=== PATIENT | male | born 1950 | race Caucasian/White ===

== ENCOUNTER → 2018-07-16 09:00 | Outpatient (CLI) | payer OTHER, MEDICARE, SELFPAY ==
--- NOTE | 2018-07-16 09:08 | US_ITS ---
PROCEDURES: ULTRASOUND AORTA REASON FOR EXAM: Male, 67 years old. Screening for abdominal aortic aneurysm. History of hypertension. TECHNIQUE: Ultrasound evaluation of the aorta was performed with real-time and static francis-scale imaging. COMPARISON: None. FINDINGS: There is no elongation or tortuosity of the abdominal aorta. Aorta measures: Proximal 2.1 cm. Middle 1.6 cm. Distal 1.8 cm. Aorta measure transversely: Proximal 2.3 cm. Middle 1.7 cm. Distal 1.8 cm. Right iliac artery measures: 1.2 cm. Right iliac artery measure transversely: 1.1 cm. Left iliac artery measures: 1.1 cm. Left iliac artery measure transversely: 1.0 cm. There is no demonstrated aneurysm.. US/Aorta IMPRESSION: Normal abdominal aorta. Electronically Signed: Nathanael Vences MD at 10:30 EDT Tel [phone], Service support ,
[2018-07-16 11:20] LABS: Anion Gap 5 (5-15); BUN 15 mg/dL (7-18); BUN/Creat Ratio 18.5 RATIO (10-20); Calcium,Total 8.5 mg/dL (8.5-10.1); Chloride 107 mmol/L (98-107); Cholesterol 161 mg/dL (200); Creatinine, Serum 0.81 mg/dL (0.70-1.30); EST Glomerular Filtration Rate 101 mL/min (>60); Est Glom Filt Rate - Afr Amer 122 mL/min (>60); Glucose 93 mg/dL (74-106); High Density Lipoprotein 63 mg/dL; Potassium 4.1 mmol/L (3.5-5.1); Sodium Level 141 mmol/L (136-145); Thyroid Stim Hormone (TSH) 1.08 uIU/mL (0.358-3.74); Triglycerides 74 mg/dL; Very Low Density Lipoprotein 15 mg/dL (5-40)
== END ==
PROVIDERS: Family Provider Family Medicine; PCP Family Medicine; Referring Provider Family Medicine; Visit Provider Family Medicine
DX: Z13.6 Encounter for screening for cardiovascular disorders (principal); I10 Essential (primary) hypertension; E03.9 Hypothyroidism, unspecified
CPT/HCPCS: 36415; 76775; 80048; 80061; 84443

== ENCOUNTER → 2019-08-25 08:43 | Outpatient (CLI) | payer MEDICARE, OTHER, SELFPAY ==
[2017-06-05 14:30] VITALS: BMI 24.2
[2019-08-25 10:50] LABS: ALB/GLOB Ratio 1.1 RATIO (0.9-2.4); AST(SGOT) 23 U/L (15-37); Alanine Aminotransfer ALT/SGPT 29 U/L (16-61); Albumin, Serum 3.8 g/dL (3.2-5.0); Alkaline Phosphatase 57 U/L (45-117); Anion Gap 8 (5-15); BUN 24 mg/dL (7-18); BUN/Creat Ratio 27.8 RATIO (10-20); Calcium,Total 8.4 mg/dL (8.5-10.1); Chloride 106 mmol/L (98-107); Cholesterol 149 mg/dL (200); Creatinine, Serum 0.86 mg/dL (0.70-1.30); EST Glomerular Filtration Rate 94 mL/min (>60); Est Glom Filt Rate - Afr Amer 114 mL/min (>60); Globulin 3.5 g/dL (2.2-4.2); Glucose 96 mg/dL (74-106); High Density Lipoprotein 69 mg/dL; Potassium 3.5 mmol/L (3.5-5.1); Protein, Total 7.3 g/dL (6.4-8.2); Sodium Level 142 mmol/L (136-145); Thyroid Stim Hormone (TSH) 0.11 uIU/mL (0.358-3.74); Triglycerides 28 mg/dL; Very Low Density Lipoprotein 6 mg/dL (5-40)
== END ==
PROVIDERS: Family Provider Family Medicine; PCP Family Medicine; Referring Provider Family Medicine; Visit Provider Family Medicine
DX: I10 Essential (primary) hypertension (principal); N40.0 Benign prostatic hyperplasia without lower urinary tract symptoms; E03.9 Hypothyroidism, unspecified
CPT/HCPCS: 36415; 80053; 80061; 84153; 84439; 84443; G0103

== ENCOUNTER → 2020-07-06 | Outpatient (CLI) | payer MEDICARE, OTHER, SELFPAY ==
[2017-06-05 14:30] VITALS: BMI 24.2
== END | disposition home or self-care (01) ==
LOC: LABSPEC 12:21
PROVIDERS: Referring Provider Family Medicine; Visit Provider Family Medicine
DX: Z03.818 Encounter for observation for suspected exposure to other biological agents ruled out (principal); Z11.59 Encounter for screening for other viral diseases
CPT/HCPCS: 87635; U0003

== ENCOUNTER → 2020-07-20 | Outpatient (CLI) | payer MEDICARE, OTHER, SELFPAY ==
[2017-06-05 14:30] VITALS: BMI 24.2
== END | disposition home or self-care (01) ==
LOC: LABSPEC 10:50
PROVIDERS: Visit Provider Family Medicine
DX: Z03.818 Encounter for observation for suspected exposure to other biological agents ruled out (principal); Z11.59 Encounter for screening for other viral diseases
CPT/HCPCS: 87635; U0003

== ENCOUNTER → 2020-08-03 | Outpatient (CLI) | payer MEDICARE, OTHER, SELFPAY ==
[2017-06-05 14:30] VITALS: BMI 24.2
== END | disposition home or self-care (01) ==
LOC: LABSPEC 08:46
PROVIDERS: Referring Provider Family Medicine; Visit Provider Family Medicine
DX: Z03.818 Encounter for observation for suspected exposure to other biological agents ruled out (principal); Z11.59 Encounter for screening for other viral diseases
CPT/HCPCS: 87635; U0003

== ENCOUNTER → 2020-08-17 | Outpatient (CLI) | payer MEDICARE, OTHER, SELFPAY ==
[2017-06-05 14:30] VITALS: BMI 24.2
== END | disposition home or self-care (01) ==
LOC: LABSPEC 10:02
PROVIDERS: Referring Provider Family Medicine; Visit Provider Family Medicine
DX: Z03.818 Encounter for observation for suspected exposure to other biological agents ruled out (principal)
CPT/HCPCS: 87635; U0003

== ENCOUNTER → 2020-08-31 | Outpatient (CLI) | payer MEDICARE, OTHER, SELFPAY | END | disposition home or self-care (01) | LOC: LABSPEC 12:23 | PROVIDERS: Referring Provider Family Medicine; Visit Provider Family Medicine | DX: Z03.818 Encounter for observation for suspected exposure to other biological agents ruled out (principal); Z11.59 Encounter for screening for other viral diseases | CPT/HCPCS: 87635; U0003 ==

== ENCOUNTER → 2021-02-14 13:58 | Outpatient (CLI) | payer MEDICARE, OTHER, SELFPAY ==
[2017-06-05 14:30] VITALS: BMI 24.2
[2021-02-14 15:44] LABS: Anion Gap 7 (5-15); BUN 21 mg/dL (7-18); BUN/Creat Ratio 28.3 RATIO (10-20); Calcium,Total 8.8 mg/dL (8.5-10.1); Chloride 105 mmol/L (98-107); Cholesterol 153 mg/dL (200); Creatinine, Serum 0.74 mg/dL (0.70-1.30); EST Glomerular Filtration Rate 111 mL/min (>60); Est Glom Filt Rate - Afr Amer 135 mL/min (>60); Glucose 78 mg/dL (74-106); High Density Lipoprotein 69 mg/dL; PSA,Total - Annual Screen 1.36 ng/mL (0.00-4.00); Potassium 3.3 mmol/L (3.5-5.1); Sodium Level 139 mmol/L (136-145); Thyroid Stim Hormone (TSH) 0.02 uIU/mL (0.358-3.74); Triglycerides 29 mg/dL; Very Low Density Lipoprotein 6 mg/dL (5-40)
== END ==
PROVIDERS: PCP Family Medicine; Referring Provider Family Medicine; Visit Provider Family Medicine
DX: I10 Essential (primary) hypertension (principal); E03.9 Hypothyroidism, unspecified; N40.0 Benign prostatic hyperplasia without lower urinary tract symptoms
CPT/HCPCS: 36415; 80048; 80061; 84153; 84443; G0103

== ENCOUNTER → 2021-03-27 08:04 | Outpatient (CLI) | payer MEDICARE, OTHER, SELFPAY ==
[2021-03-27 10:34] LABS: Anion Gap 4 (5-15); BUN 17 mg/dL (7-18); BUN/Creat Ratio 22.3 RATIO (10-20); Calcium,Total 8.6 mg/dL (8.5-10.1); Chloride 108 mmol/L (98-107); Creatinine, Serum 0.76 mg/dL (0.70-1.30); EST Glomerular Filtration Rate 108 mL/min (>60); Est Glom Filt Rate - Afr Amer 131 mL/min (>60); Glucose 97 mg/dL (74-106); Potassium 4.2 mmol/L (3.5-5.1); Sodium Level 140 mmol/L (136-145)
== END ==
PROVIDERS: PCP Family Medicine; Visit Provider Family Medicine
DX: I10 Essential (primary) hypertension (principal)
CPT/HCPCS: 36415; 80048

== ENCOUNTER → 2021-09-06 08:16 | Outpatient (CLI) | payer MEDICARE, OTHER, SELFPAY ==
[2021-09-06 10:46] LABS: T4 Free Direct 1.26 ng/dL (0.76-1.46); Thyroid Stim Hormone (TSH) 0.08 uIU/mL (0.358-3.74)
[2021-09-11 07:42] LABS: Anti-Thyroglobulin AB < 1.0 IU/mL (0.0-0.9); Thyroglobulin, Serum Qt. < 0.1 ng/mL (1.4-29.2)
== END ==
PROVIDERS: PCP Family Medicine; Referring Provider Family Medicine
DX: C73 Malignant neoplasm of thyroid gland (principal)
CPT/HCPCS: 36415; 84432; 84439; 84443; 86800

== ENCOUNTER → 2022-02-26 | Outpatient (CLI) | payer MEDICARE, OTHER, SELFPAY ==
--- NOTE | 2022-02-26 | LES_PTH ---
PATIENT: DARRIUS PITTS LOC: [facility] U#:[id number] AGE/SX: 71/M ROOM: RE02/26/[address]: Dr. Xavier Duvall MD : 1950 BED: DIS: 02/26/2022 SPEC #: [id number] RECD: 02/26/22 17:14 STATUS: MARILOU REJorje #: [id number] JADA: 02/26/22 00:[address]: Xavier Duvall DEPT: SURGICAL PATHOLOGY RECD BY: Dara Lynn ENTERED: 02/27/22 09:24 SP TYPE: Lesion OTHR DR: Dr. Fabian Salgado MD Tissues: Skin of eyelid, NOS Procedures: Surgery Specimen Level IV HEADER OPERATION: Right upper lid lesion excision PRE-OP DIAGNOSIS: Right upper lid lesion TISSUE SUBMITTED: Right upper lid lesion MICROSCOPIC DIAGNOSIS Lesion of right upper eyelid, biopsy: Consistent with eccrine cyst. AM:manny 02/28/2022 MICROSCOPIC DESCRIPTION Slides are reviewed. GROSS DESCRIPTION Received in fixative is one container labeled with the patient's name and designated right upper lid. The specimen consists of a minute piece of genao-light brown skin measuring 0.1 cm in greatest dimension. The entire specimen is submitted in one cassette. / SJ:manny 02/27/2022 TC:5 CPT: 09239
== END | disposition home or self-care (01) ==
PROVIDERS: PCP Family Medicine; Referring Provider Ophthalmology; Visit Provider Ophthalmology
DX: H02.9 Unspecified disorder of eyelid (principal)
CPT/HCPCS: 88305

== ENCOUNTER → 2022-04-11 | Outpatient (CLI) | payer MEDICARE, OTHER, SELFPAY ==
[2022-04-11 10:54] LABS: Anion Gap 6 (5-15); BUN 23 mg/dL (7-18); BUN/Creat Ratio 35.5 RATIO (10-20); Calcium,Total 8.9 mg/dL (8.5-10.1); Chloride 107 mmol/L (98-107); Cholesterol 134 mg/dL (200); Creatinine, Serum 0.65 mg/dL (0.70-1.30); EST Glomerular Filtration Rate 130 mL/min (>60); Est Glom Filt Rate - Afr Amer 157 mL/min (>60); Glucose 100 mg/dL (74-106); High Density Lipoprotein 58 mg/dL; PSA,Total - Annual Screen 1.96 ng/mL (0.00-4.00); Potassium 3.7 mmol/L (3.5-5.1); Sodium Level 140 mmol/L (136-145); Thyroid Stim Hormone (TSH) 0.02 uIU/mL (0.358-3.74); Triglycerides 28 mg/dL; Very Low Density Lipoprotein 6 mg/dL (5-40)
== END | disposition home or self-care (01) ==
LOC: MFPLAB 08:23
PROVIDERS: PCP Family Medicine; Referring Provider Family Medicine; Visit Provider Family Medicine
DX: I10 Essential (primary) hypertension (principal); E03.9 Hypothyroidism, unspecified; Z12.5 Encounter for screening for malignant neoplasm of prostate
CPT/HCPCS: 36415; 80048; 80061; 84153; 84443; G0103

== ENCOUNTER 2022-05-10 16:01 | Emergency (ER) | payer MEDICARE, OTHER, SELFPAY ==
[2022-05-10 16:02] VITALS: BP 135/78; PULSE 59; RESP 16; TEMP 36.3; O2SAT 98; BMI 23.3
--- NOTE | 2022-05-10 16:20 | EX.ED.DYSGE1 ---
HPI <SIMRAN Rahman - Last Filed: 05/10/22 17:42> History of Present Illness Chief Complaint: Laceration Narrative Narrative: 71-year-old male with history of hypothyroidism, BPH, hypertension presents to the emergency department after cutting his right hand with a saw. Patient has lax to the second third and fourth digit. The second digit is the worst, it is cut at the DIP joint, the patient is unable to fully extend the third digit. Patient's tetanus vaccination is up-to-date. Patient is full range of motion of the other fingers. Patient denies other injury. PFS <SIMRAN Rahman - Last Filed: 05/10/22 17:42> [facility] Medical History (Updated 05/10/22 @ 17:36 by SIMRAN Rahman) Hypertension Home Medications finasteride 5 mg tablet 5 mg PO QHS 08/13/16 [History Last Taken Unknown] levothyroxine 137 mcg tablet (Levoxyl) 137 mcg PO QHS 08/13/16 [History Last Taken Unknown] losartan 100 mg tablet 100 mg PO DAILY 08/13/16 [History Last Taken Unknown] cefadroxil 500 mg capsule 500 mg PO BID #10 caps 05/10/22 [Rx Last Taken Unknown] Allergy/AdvReac Type Severity Reaction Status Date / Time Penicillins Allergy Unknown Verified 05/10/22 16:02 Surgical History (Updated 05/10/22 @ 16:12 by Cindi Coffman) H/O thyroidectomy Hx of appendectomy Hx of tonsillectomy Social History Smoking Status: Never smoker ROS <SIMRAN Rahman - Last Filed: 05/10/22 17:42> ROS ED ROS Narrative Constitutional: Negative for fever, chills, weight loss, weakness Eyes: Negative for vision loss, vision change, double vision ENT: Negative for any sore throat, ear pain, congestion Cardiovascular: Negative for any chest pain, tightness, palpitations Respiratory: Negative for any cough, sputum production, hemoptysis, dyspnea, dyspnea on exertion, orthopnea Gastrointestinal: Negative for any abdominal pain, nausea, vomiting, diarrhea, constipation, blood in stool, blood in vomit : Negative for any urinary frequency, dysuria, retention, blood in urine Muscle skeletal: Negative for any muscle joint pain, stiffness, myalgias, arthralgias, neck pain, back pain. Positive for right hand pain Neurological: Negative for any headache, syncope, numbness or tingling, dizziness Skin: Negative for any rashes, lumps, itching, abrasions. Positive for laceration to the right second third and fourth digit Psychiatric: Negative for any depression, anxiety, stress, suicidal ideation, homicidal ideation Hematologic: Negative for any easy bruising, excessive bruising, easy bleeding Allergies: Negative for any eczema, hives, rash EXAM <SIMRAN Rahman - Last Filed: 05/10/22 17:42> Physical Exam Narrative Exam Narrative: Vital signs reviewed. HEET: Head normocephalic atraumatic, TMs clear bilaterally. Posterior pharynx is clear, moist mucous membranes. Nares clear bilaterally. Neck: Supple with no lymphadenopathy or tenderness. No signs of meningismus, negative jolt sign. Cardiac: Regular rate and rhythm no murmurs gallops or rubs, equal peripheral pulses bilaterally. Respiratory: Lungs clear to auscultation bilaterally. No chest tenderness. Abdomen: Soft, nontender, nondistended. No abdominal bruit or pulsatile masses. No hepatosplenomegaly Extremities: Patient has a small laceration to the PIP joint of the right second digit, patient has full range of motion of this digit. Patient has a 2 cm full-thickness laceration to the DIP joint on the third digit, patient is unable to fully extend this digit concerning for a extensor tendon injury. Patient's fourth digit has a small laceration to the PIP joint. Full range of motion of this digit. +2 radial pulse. Neurologically focally intact. Neuro: Cranial nerves II through XII intact, no focal neurological deficits. Skin: Clean dry and intact with no rash, purpura, petechiae, vesicles or pustules. Backs/flank: No CVA tenderness, no midline spinal tenderness, no deformity. Psych: Normal mood and affect. No SI, HI or acute psychosis. Const Vital Signs: 05/10/22 16:02 05/10/22 18:09 Temperature 97.4 F L Temperature Source Temporal Pulse Rate 59 L Respiratory Rate 16 18 Blood Pressure 135/78 H Blood Pressure Mean 97 Pulse Ox 98 Oxygen Delivery Method Room Air Positive well nourished and well developed General Appearance ED: well developed <Dr. Monico Snowden MD - Last Filed: 05/11/22 01:39> Physical Exam Const Vital Signs: 05/10/22 16:02 05/10/22 18:09 Temperature 97.4 F L Temperature Source Temporal Pulse Rate 59 L Respiratory Rate 16 18 Blood Pressure 135/78 H Blood Pressure Mean 97 Pulse Ox 98 Oxygen Delivery Method Room Air [facility] <Da RoseSIMRAN - Last Filed: 05/10/22 17:42> [facility] Radiography Diagnostic Testing: Clinical Impression(s) from Imaging Studies Hand X-Ray 05/10/22 16:22 IMPRESSION: Chip avulsion fracture fragment off of the dorsal aspect of the base of the third distal phalanx. Soft tissue swelling on the dorsum of the third and DIP joint. No radiopaque foreign body. Electronically Signed: Jon Lewis MD at 16:59 EDT , Treatment and Re-Evaluation Narrative: Patient appears well, patient appears nontoxic, vital signs stable. Patient presents to the emergency department with complaints of laceration to the right second third and fourth digit. Patient's right third digit was definitely more damaged. Patient did receive an x-ray of the hand, this did show a chip avulsion fracture fragment off the dorsal aspect of the base of the third distal phalanx. From physical examination there is an extensor injury to the third digit. This area was soaked in warm soapy water. It was then irrigated with 500 cc of normal saline. I was able place 4 simple interrupted sutures of 4-0 Ethilon. Patient has a superficial lacerations to both the second and fourth digit. This third digit had a 2 cm laceration the DIP joint. Patient be placed in a finger splint that is slightly extended. I did speak with Dr. Jm Galloway from orthopedics, he will follow-up with hand at [facility]. Patient placed on Duricef twice a day for 5 days. He is instructed to follow-up closely with orthopedics. He will return here for any worsening pain, redness to the hand, fever or chills. <Dr. Monico Snowden MD - Last Filed: 05/11/22 01:39> MDM MDM Narrative Medical decision making narrative: Seen and evaluated independently and in conjunction with [employer] [employer] [employer]. Agree with notes above unless documented otherwise. Accidental tablesaw injury right hand. Abrasions to the index and long fingers, the major injury is to the middle finger, where he has a swan-neck deformity with apparent complete rupture of the extensor complex. He is neurovascularly intact distally. Right hand x-ray 3 views of my interpretation shows what appears to be a nondisplaced fracture longitudinally through the middle phalanx of the long finger but radiology apparently does not think there is a fracture there. We splinted him out of precaution to include this part of the digit, with extension at the DIPJ, prophylactic antibiotics for 5 days, and follow-up with [facility] after to be discussed with local orthopedics and they preferred to be bypassed. Radiography Diagnostic Testing: Clinical Impression(s) from Imaging Studies Hand X-Ray 05/10/22 16:22 IMPRESSION: Chip avulsion fracture fragment off of the dorsal aspect of the base of the third distal phalanx. Soft tissue swelling on the dorsum of the third and DIP joint. No radiopaque foreign body. Electronically Signed: Jon Lewis MD at 16:59 EDT , Procedures <SIMRAN Rahman - Last Filed: 05/10/22 17:42> Lacerations Right second digit laceration: Length: 2 cm Depth: Muscle Shape: Flap Prep: Sterile Conditions and Shure-Clens Laceration repair: Digital block, Irrigated and Lidocaine Irrigated (ml): 500 Number of Sutures/Lai: 4 Suture Information: Ethilon Comment: Patient was also placed in a finger splint Discharge Plan Triage Chief Complaint: Laceration ED Midlevel Provider: Da Rose ED Provider: Monico Snowden Dx/Rx/DC Orders Clinical Impression: Laceration of finger, Extensor tendon laceration of finger with open wound Instructions: ED Laceration, Hand: All Closures, ED Tendon Laceration Prescriptions: New cefadroxil 500 mg capsule 500 mg PO BID Qty: 10 0RF No Action levothyroxine [Levoxyl] 137 MCG tablet 137 mcg PO QHS losartan 100 MG tablet 100 mg PO DAILY finasteride 5 MG tablet 5 mg PO QHS Primary Care Provider: Mendoza Salgado Referrals: Mendoza Salgado MD [Primary Care Provider] - Activity Restrictions/Additional Instructions: You will follow-up with [facility]. It is a [facility] in [place]. [address], [phone]?tel:[phone] You need to let them know that you were in the emergency department at [facility]. You have an extensor tendon injury and cannot extend your finger. You need to be seen in the next 5 days. Print Language: Pashto Disposition Disposition: Home, Self Care Discharge Date/Time: 05/10/22 18:11
--- NOTE | 2022-05-10 16:22 | RAD_ITS ---
STUDY: X-RAY - RIGHT HAND REASON FOR EXAM: Male, 71 years old. Pain after trauma TECHNIQUE: 3 view(s) of the hand. COMPARISON: None. FINDINGS: Please see the impression. RAD/Hand Min 3 Views IMPRESSION: Chip avulsion fracture fragment off of the dorsal aspect of the base of the third distal phalanx. Soft tissue swelling on the dorsum of the third and DIP joint. No radiopaque foreign body. Electronically Signed: Jon Lewis MD at 16:59 EDT ,
[2022-05-10] MEDS: Diphth,Pertuss(Acell),Tet Vac 0.5 ML Vial IM (16:27)
[2022-05-10] MEDS: Lidocaine 1% (20 ml mdv) 20 ML Vial 3 ML INFILT (17:21)
[2022-05-10 18:09] VITALS: RESP 18
== END 2022-05-10 18:11 | disposition home or self-care (01) ==
PROVIDERS: Emergency Provider Emergency Medicine; PCP Family Medicine; Visit Provider Emergency Medicine
DX: S66.322A Laceration of extensor muscle, fascia and tendon of right middle finger at wrist and hand level, initial encounter (principal); S62.632A Displaced fracture of distal phalanx of right middle finger, initial encounter for closed fracture; S61.210A Laceration without foreign body of right index finger without damage to nail, initial encounter; S61.212A Laceration without foreign body of right middle finger without damage to nail, initial encounter; S61.214A Laceration without foreign body of right ring finger without damage to nail, initial encounter; W29.8XXA Contact with other powered hand tools and household machinery, initial encounter; Z23 Encounter for immunization; I10 Essential (primary) hypertension; E89.0 Postprocedural hypothyroidism; N40.0 Benign prostatic hyperplasia without lower urinary tract symptoms; Z79.890 Hormone replacement therapy; Z79.899 Other long term (current) drug therapy
CPT/HCPCS: 12001; 73130; 90471; 99283

== ENCOUNTER 2022-07-25 08:30 | Outpatient (RCR) | payer MEDICARE, OTHER, SELFPAY ==
--- NOTE | 2022-07-15 10:16 | HP.OTEVAL ---
Patient's Visit Information DARRIUS PITTS is a 71 year old M, referred to Occupational Therapy by Dr. Erwin Monroe MD, with a diagnosis of right hand laceration. Date of Evaluation: 07/15/22 Occupational Therapist: Jessie Rosen, ROSEMARYR/Kirsty, CHT - Subjective This 71 year old male was seen for OT eval with dx of right hand laceration. pt states on 05/10/22 he got his hand caught in a table saw. Now 9 weeks and 3 days from injury. went to ER - was stitched by ER dr. pt is right handed. currently demo with limited ability to straighten tip of right MF DIP and form tight fist- pt would like to know what more he can do to return to his PLOF. 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 Goal:: pt will demo understanding of joint protection tarik. by end of 3rd session to decrease stress on joints while performing IADLs and home mtg. tasks. - Rehabilitation General Assessment: pt arrives 9 weeks and 3 days from DOI- pt demo with with right MF scar hypertrophy /edema and limited ROM and decrease in functional strength limiting home mt. tasks. Pt would benefit from skilled OT services 1-2x week for 3 weeks to regain strength and ROM to return to his PLOF. today therapist ed. pt on tendon glide- reverse blocking- edema mtg- scar mtg and was given handouts- pt demo understanding and agree to POC. Rehabilitation Potential: Good - Anticipated Interventions A/AAROM/PROM, Strengthening, Edema Control, Scar Care, Triggerpoint Release, Orthoses, Joint Protection/Energy Conservation, Fine Motor Coord/Patrick, Caregiver Training, Home Program - Visit Plan Frequency: 1-2x /Week Duration: 2-4 Weeks TEXT: Thank you for the opportunity to evaluate your patient. For Medicare and Medicare HMO plans, please review the plan of care and approve it. It will need to be FAXED BACK to us at [phone] for Medicare purposes. Please let me know if there are questions or concerns regarding this plan of care. Physician Signature: Date:
--- NOTE | 2022-07-25 10:59 | HP.OTDCSUM ---
It has been my pleasure to treat DARRIUS PITTS under orders from Dr. Erwin Monroe MD, for the diagnosis of right hand laceration for a total of 2 visit(s). Please see the following information for a summary of their discharge status. % Improvement: 70 Objective/Function: pt demo the ability to make a full fist and strength has improved to 55#. DIP ext no change but pt is content with where it is at. 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 Goal:: pt will demo understanding of joint protection tarik. by end of 3rd session to decrease stress on joints while performing IADLs and home mtg. tasks. Discharge Comments: pt was seen for follow up visit - feeling better and has more function of his right hand- pt has met OT goals and is d/c at this time. If there are questions or concerns regarding this patient's occupational therapy, please fell free to call me at [phone]. Thank you for the referral of this patient. Sincerely, Jessie Rosen, OTR/L, CHT
== END 2022-07-25 12:52 | disposition home or self-care (01) ==
LOC: OT 08:30
PROVIDERS: PCP Family Medicine; Referring Provider Orthopaedic Surgery; Visit Provider Orthopaedic Surgery
DX: S61.411A Laceration without foreign body of right hand, initial encounter (principal)
CPT/HCPCS: 97110; 97166; 97530

== ENCOUNTER → 2023-07-17 | Outpatient (CLI) | payer MEDICARE, OTHER, SELFPAY ==
[2023-07-17 09:39] LABS: PSA,Total - Annual Screen 1.93 ng/mL (0.00-4.00)
== END | disposition home or self-care (01) ==
PROVIDERS: PCP Family Medicine; Visit Provider Urology
DX: Z12.5 Encounter for screening for malignant neoplasm of prostate (principal)
CPT/HCPCS: 36415; 84153; G0103

== ENCOUNTER → 2024-02-19 | Outpatient (CLI) | payer MEDICARE, OTHER, SELFPAY ==
[2024-02-19 10:59] LABS: ALB/GLOB Ratio 1.1 RATIO (0.9-2.4); AST(SGOT) 23 U/L (15-37); Alanine Aminotransfer ALT/SGPT 20 U/L (16-61); Albumin, Serum 3.8 g/dL (3.2-5.0); Alkaline Phosphatase 59 U/L (45-117); Anion Gap 5 (5-15); BUN 20 mg/dL (7-18); Calcium,Total 8.7 mg/dL (8.5-10.1); Chloride 106 mmol/L (98-107); Cholesterol 160 mg/dL (200); Creatinine, Serum 0.77 mg/dL (0.70-1.30); EST Glomerular Filtration Rate 106 mL/min (>60); Est Glom Filt Rate - Afr Amer 128 mL/min (>60); Globulin 3.6 g/dL (2.2-4.2); Glucose 93 mg/dL (74-106); High Density Lipoprotein 62 mg/dL; Potassium 3.8 mmol/L (3.5-5.1); Protein, Total 7.4 g/dL (6.4-8.2); Sodium Level 138 mmol/L (136-145); T4 Free Direct 1.56 ng/dL (0.76-1.46); Thyroid Stim Hormone (TSH) 0.01 uIU/mL (0.358-3.74); Triglycerides 32 mg/dL; Very Low Density Lipoprotein 6 mg/dL (5-40)
[2024-02-20 04:07] LABS: Thyroid Peroxidase AB < 9 IU/mL (0-34)
== END | disposition home or self-care (01) ==
LOC: MFPLAB 09:18
PROVIDERS: PCP Family Medicine; Visit Provider Family Medicine
DX: I10 Essential (primary) hypertension (principal); E03.9 Hypothyroidism, unspecified
CPT/HCPCS: 36415; 80053; 80061; 84439; 84443; 86376

== ENCOUNTER → 2024-07-19 | Outpatient (CLI) | payer MEDICARE, OTHER, SELFPAY ==
[2024-07-19 09:43] LABS: PSA,Total - Annual Screen 5.24 ng/mL (0.00-4.00)
== END | disposition home or self-care (01) ==
LOC: LAB 08:56
PROVIDERS: PCP Family Medicine; Referring Provider Urology; Visit Provider Urology
DX: Z12.5 Encounter for screening for malignant neoplasm of prostate (principal)
CPT/HCPCS: 36415; 84153; G0103

== ENCOUNTER → 2024-09-20 | Outpatient (CLI) | payer MEDICARE, OTHER, SELFPAY ==
[2024-09-20 08:30] LABS: Anion Gap 3 (5-15); BUN 17 mg/dL (7-18); BUN/Creat Ratio 22.4 RATIO (10-20); Calcium,Total 8.7 mg/dL (8.5-10.1); Chloride 108 mmol/L (98-107); Creatinine, Serum 0.76 mg/dL (0.70-1.30); EST Glomerular Filtration Rate 108 mL/min (>60); Est Glom Filt Rate - Afr Amer 130 mL/min (>60); Glucose 103 mg/dL (74-106); Potassium 4.1 mmol/L (3.5-5.1); Sodium Level 140 mmol/L (136-145); T4 Free Direct 1.21 ng/dL (0.76-1.46); Thyroid Stim Hormone (TSH) 0.064 uIU/mL (0.358-3.740)
[2024-09-20 08:37] LABS: PSA,Total- Diagnostic 1.75 ng/mL (0.0-4.0)
== END | disposition home or self-care (01) ==
LOC: LAB 07:27
PROVIDERS: Urology; PCP Family Medicine; Referring Provider Family Medicine; Visit Provider Family Medicine
DX: N40.1 Benign prostatic hyperplasia with lower urinary tract symptoms (principal); E03.9 Hypothyroidism, unspecified; I10 Essential (primary) hypertension
CPT/HCPCS: 36415; 80048; 84153; 84439; 84443

== ENCOUNTER → 2025-07-21 | Outpatient (CLI) | payer MEDICARE, OTHER, SELFPAY ==
[2025-07-21 10:56] LABS: Anion Gap 12 (5-15); BUN 20 mg/dL (4-19); BUN/Creat Ratio 27.2 RATIO (10-20); Calcium,Total 9.0 mg/dL (7.6-11.0); Carbon Dioxide 24.8 mmol/L (21.0-32.0); Chloride 103 mmol/L (98-108); Glucose 95 mg/dL (70-99); PSA,Total- Diagnostic 1.03 ng/mL (0.00-4.00); Potassium 3.9 mmol/L (3.3-5.1)
== END | disposition home or self-care (01) ==
PROVIDERS: PCP Family Medicine; Referring Provider Family Medicine; Visit Provider Family Medicine
DX: R97.20 Elevated prostate specific antigen [PSA] (principal); E03.9 Hypothyroidism, unspecified; I10 Essential (primary) hypertension
CPT/HCPCS: 36415; 80048; 84153; 84439; 84443

== ENCOUNTER → 2025-08-26 | Outpatient (CLI) | payer MEDICARE, OTHER, SELFPAY | END | disposition home or self-care (01) | LOC: LAB 07:25 | PROVIDERS: PCP Family Medicine; Referring Provider Family Medicine; Visit Provider Family Medicine | DX: E03.9 Hypothyroidism, unspecified (principal) | CPT/HCPCS: 36415; 84439; 84443 ==